=== PATIENT | male | born 1995 | race American Indian/Alaskan Native ===

== ENCOUNTER 2018-10-11 01:39 | Emergency (ER) | payer SELFPAY ==
[2018-10-11 02:03] VITALS: BP 140/68
[2018-10-11] MEDS ORDERED: ZOFRAN IV ONE (02:17)
[2018-10-11] MEDS ORDERED: NACL 0.9% 1000 ML 1,000 ML IV ONE (02:17)
--- NOTE | 2018-10-11 02:18 | Emergency Department Report ---
ED Abdominal Pain HPI - General Chief Complaint: Abdominal Pain Stated Complaint: ABDOMINAL PAIN/ N&V Time Seen by Provider: 10/11/18 02:05 Source: patient, EMS Mode of arrival: Stretcher Limitations: No Limitations - History of Present Illness Initial Comments: Patient is a 22-year-old male presents emergency room with intractable nausea and vomiting and abdominal pain 2 days. Patient states he is having left lower quadrant abdominal pain. Patient states she has not had a bowel movement for 3 days. Patient states his symptoms are worsening. Patient states she has not held any oral intake down. Patient states his pain is a 8 out of 10. Patient states pain is worse with vomiting and movement. Patient states better with rest. Patient denies fever and chills. Patient denies blurry vision and denies headache. MD Complaint: abdominal pain -: Sudden Location: LLQ Radiation: none Migration to: no migration Severity scale (0 -10): 8 Quality: stabbing Consistency: constant Improves With: rest Worsens With: vomiting, movement Associated Symptoms: nausea, vomiting, constipation. denies: diarrhea, fever, chills, dysuria, hematemesis, hematochezia, melena, hematuria, anorexia, syncope - Related Data Previous Rx's Medication Instructions Recorded Last Taken Type Ondansetron [Zofran Odt] 4 mg PO Q6HR PRN #15 tab.rapdis 10/11/18 Unknown Rx Allergies Allergy/AdvReac Type Severity Reaction Status Date / Time No Known Allergies Allergy Unverified 10/11/18 02:06 ED Review of Systems ROS: Stated complaint: ABDOMINAL PAIN/ N&V Other details as noted in HPI Constitutional: denies: chills, fever Eyes: denies: eye pain, eye discharge, vision change ENT: denies: ear pain, throat pain Respiratory: denies: cough, shortness of breath, wheezing Cardiovascular: denies: chest pain, palpitations Endocrine: no symptoms reported Gastrointestinal: abdominal pain, nausea, vomiting, constipation. denies: diarrhea, hematemesis, melena, hematochezia Genitourinary: denies: urgency, dysuria Musculoskeletal: denies: back pain, joint swelling, arthralgia Skin: denies: rash, lesions Neurological: denies: headache, weakness, paresthesias Psychiatric: denies: anxiety, depression Hematological/Lymphatic: denies: easy bleeding, easy bruising ED Past Medical Hx - Past Medical History Previous Medical History?: No - Surgical History Past Surgical History?: No - Family History Family history: no significant - Social History Smoking Status: Never Smoker Substance Use Type: Marijuana - Medications Home Medications: Home Medications Medication Instructions Recorded Confirmed Last Taken Type Ondansetron [Zofran Odt] 4 mg PO Q6HR PRN #15 tab.rapdis 10/11/18 Unknown Rx ED Physical Exam - General Limitations: No Limitations General appearance: alert, in no apparent distress - Head Head exam: Present: atraumatic, normocephalic - Eye Eye exam: Present: normal appearance - ENT ENT exam: Present: mucous membranes moist - Neck Neck exam: Present: normal inspection - Respiratory Respiratory exam: Present: normal lung sounds bilaterally. Absent: respiratory distress - Cardiovascular Cardiovascular Exam: Present: regular rate, normal rhythm. Absent: systolic murmur, diastolic murmur, rubs, gallop - GI/Abdominal GI/Abdominal exam: Present: soft, tenderness (generalized tenderness), normal b owel sounds - Rectal Rectal exam: Present: deferred - Extremities Exam Extremities exam: Present: normal inspection - Back Exam Back exam: Present: normal inspection - Neurological Exam Neurological exam: Present: alert, oriented X3 - Psychiatric Psychiatric exam: Present: normal affect, normal mood - Skin Skin exam: Present: warm, dry, intact, normal color. Absent: rash ED Course Vital Signs 10/11/18 10/11/18 01:59 02:01 Temperature 98.2 F Pulse Rate 68 Respiratory 19 Rate Blood Pressure 140/68 [Left] O2 Sat by Pulse 100 Oximetry - Reevaluation(s) Reevaluation #1: Discussed all results with patient. We will try a by mouth challenge and if patient tolerates patient can be DC'd. Patient agrees to plan of care. 10/11/18 03:55 Patient tolerated by mouth challenge. Patient will be discharged home. Patient is stable for discharge. She given discharge instructions. Patient was discharged home. Patient given diet instructions. Patient voiced understanding of discharge instructions. 10/11/18 04:06 ED Medical Decision Making - Lab Data Result diagrams: 10/11/18 02:23 10/11/18 02:23 - Radiology Data Radiology results: report reviewed FINDINGS: Visualized lower thorax: No significant abnormality. Liver: Normal size and attenuation. Spleen: Normal size and attenuation. Gallbladder and biliary system: Normal. Pancreas: Normal. Adrenals: Normal. Kidneys: Normal. GI tract: No obstruction. No ileus or enteritis. The cecum, appendix and colon are normal. . Lymph nodes and mesentery: Normal. Vasculature: Normal.. Bladder: Normal. Reproductive organs: Normal. Peritoneum: No free fluid. Musculoskeletal structures: No significant abnormality. Other: None. IMPRESSION: Normal examination of the abdomen and pelvis . - Medical Decision Making is a 22-year-old male presents emergency room with nausea vomiting abdominal pain. Patient has a negative CT scan. Patient's labs unremarkable. Patient given fluids and Zofran in the ER and symptoms improved. Patient will be discharged home with a prescription for Zofran. patient given discharge instructions. Patient will need to increase water and eat a Jalil diet. - Differential Diagnosis enteritis. Nausea vomiting. Abdominal pain. Critical care attestation.: If time is entered above; I have spent that time in minutes in the direct care of this critically ill patient, excluding procedure time. ED Disposition Clinical Impression: Gastroenteritis Abdominal pain Qualifiers: Abdominal location: left lower quadrant Qualified Code(s): R10.32 - Left lower quadrant pain Nausea & vomiting Qualifiers: Vomiting type: unspecified Vomiting Intractability: non-intractable Qualified Code(s): R11.2 - Nausea with vomiting, unspecified Disposition: - TO HOME OR SELFCARE Is pt being admited?: No Does the pt Need Aspirin: No Condition: Stable Instructions: Gastroenteritis (ED), Acute Nausea and Vomiting (ED) Additional Instructions: Patient to follow-up with primary care in 2-3 days. Patient to take Tylenol or ibuprofen when necessary for pain. Patient eating a brat diet. Patient to return to ER if condition worsens. Patient to take meds as directed. Patient to increase water. Patient to rest. Patient to continue all meds. Prescriptions: Ondansetron [Zofran Odt] 4 mg PO Q6HR PRN #15 tab.rapdis PRN Reason: Nausea And Vomiting Referrals: KRISTIN KAPLAN MD [Primary Care Provider] - 3-5 Days Time of Disposition: 04:11
[2018-10-11 02:43] LABS: Basophils % (Auto) 0.3 % (0.0-1.8); Eosinophils % (Auto) 0.1 % (0.0-4.3); Hematocrit 46.4 % (35.5-45.6); Hemoglobin 15.7 gm/dl (11.8-15.2); Lymphocytes # (Auto) 1.7 K/mm3 (1.2-5.4); Mean Corpuscular HGB Conc 34 % (32-34); Mean Corpuscular Volume 85 fl (84-94); Monocytes # (Auto) 0.4 K/mm3 (0.0-0.8); Monocytes % (Auto) 4.2 % (0.0-7.3); Platelet Count 201 K/mm3 (140-440); Red Blood Count 5.49 M/mm3 (3.65-5.03)
[2018-10-11 03:08] LABS: Alanine Aminotransferase 17 units/L (7-56); Albumin 4.9 g/dL (3.9-5); BUN/Creatinine Ratio 15; Blood Urea Nitrogen 12 mg/dL (9-20); Calcium 9.9 mg/dL (8.4-10.2); Hemolysis Index 16
--- NOTE | 2018-10-11 03:44 | Cat Scan Report ---
PROCEDURE: CT ABDOMEN PELVIS WO CON TECHNIQUE: Computerized axial tomography of the abdomen and pelvis was performed without intravenous contrast. This study is performed without intravascular contrast material and its sensitivity for ab dominal and pelvic pathology, including neoplasms, inflammation, abscess, free fluid, thrombosis, art erial dissection and infarction, is reduced compared with a contrast enhanced study. HISTORY: abd pain. n/v COMPARISONS: None . FINDINGS: Visualized lower thorax: No significant abnormality. Liver: Normal size and attenuation. Spleen: Normal size and attenuation. Gallbladder and biliary system: Normal. Pancreas: Normal. Adrenals: Normal. Kidneys: Normal. GI tract: No obstruction. No ileus or enteritis. The cecum, appendix and colon are normal. . Lymph nodes and mesentery: Normal. Vasculature: Normal.. Bladder: Normal. Reproductive organs: Normal. Peritoneum: No free fluid. Musculoskeletal structures: No significant abnormality. Other: None. IMPRESSION: Normal examination of the abdomen and pelvis . This document is electronically signed by Guerda Langford DO., October 11 2018 03:42:11 AM ET
== END 2018-10-11 04:26 | disposition home or self-care (01) ==
LOC: ED 01:39
DX: K52.9 Noninfective gastroenteritis and colitis, unspecified (principal); F12.10 Cannabis abuse, uncomplicated
CPT/HCPCS: 36415; 74176; 80053; 83690; 85025; 96361; 96374; 99284; J2405; J7030

== ENCOUNTER 2021-01-02 13:07 | Emergency (ER) | payer SELFPAY ==
[2021-01-02 13:57] VITALS: BP 114/70
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
--- NOTE | 2021-01-02 14:45 | XRay Report ---
RIGHT KNEE 3 VIEW(S) INDICATION / CLINICAL INFORMATION: pain after crushing injury COMPARISON: None available. FINDINGS: BONES / JOINT(S): No acute fracture or subluxation. No significant arthritis. SOFT TISSUES: No significant abnormality. ADDITIONAL FINDINGS: None. Signer Name: Norman Garcia MD Signed: 01/02/2021 2:41 PM Workstation Name: [id number]
== END 2021-01-02 15:59 | disposition home or self-care (01) ==
LOC: ED 13:07
DX: S80.01XA Contusion of right knee, initial encounter (principal); F12.90 Cannabis use, unspecified, uncomplicated; Z79.899 Other long term (current) drug therapy; Z98.890 Other specified postprocedural states; V89.2XXA Person injured in unspecified motor-vehicle accident, traffic, initial encounter; Y92.410 Unspecified street and highway as the place of occurrence of the external cause; Y93.89 Activity, other specified; Y99.8 Other external cause status
CPT/HCPCS: 99283